=== PATIENT | male | born 1970 | race Caucasian/White ===

== ENCOUNTER 2024-08-28 14:15 | Observation (INO) ==
[2024-08-28] MEDS: NS 1,000 ML IV 1,000 ML IV ONE ×4 (15:02→21:24)
[2024-08-28] MEDS: ZOFRAN INJ 4 MG VIAL IVP ONE (15:03)
[2024-08-28 15:12] LABS: BASOPHILS # (AUTO) 0.1 X10^3/uL (0.0-0.1); BASOPHILS % (AUTO) 0.5 % (0.2-1.0); EOSINOPHILS # (AUTO) 0.5 x10^3/uL (0.0-0.2); HEMATOCRIT 46.4 % (42.0-54.0); HEMOGLOBIN 15.5 g/dL (13.5-18.0); LYMPHOCYTES # (AUTO) 2.5 X10^3/uL (1.3-2.9); LYMPHOCYTES % (AUTO) 15.1 % (21.0-51.0); MEAN CORPUSCULAR HEMOGLOBIN 27.9 pg (27.0-34.0); MEAN CORPUSCULAR HGB CONC 33.4 g/dL (33.0-35.0); MEAN CORPUSCULAR VOLUME 83.4 fL (80.0-100.0); MEAN PLATELET VOLUME 8.3 fL (7.4-11.0); MONOCYTES # (AUTO) 0.8 x10^3/uL (0.3-0.8); MONOCYTES % (AUTO) 4.6 % (0.0-13.0); NEUTROPHILS # (AUTO) 12.9 x10^3/uL (2.2-4.8); NEUTROPHILS % (AUTO) 76.8 % (42.0-75.0); PLATELET COUNT 343 X10^3/uL (150.0-450.0); RED BLOOD COUNT 5.57 X10^6/uL (4.7-6.0); RED CELL DISTRIBUTION WIDTH 14.8 % (11.6-16.5); WHITE BLOOD COUNT 16.8 X10^3/uL (3.6-10.0)
--- NOTE | 2024-08-28 15:24 | EKG ---
Test Reason : vomiting Blood Pressure : */* mmHG Vent. Rate : 63 BPM Atrial Rate : 63 BPM P-R Int : 192 ms QRS Dur : 108 ms QT Int : 426 ms P-R-T Axes : 46 -12 -8 degrees QTc Int : 435 ms Normal sinus rhythm Minimal voltage criteria for LVH, may be normal variant ( R in aVL ) Inferior infarct (cited on or before 14-APR-2022) Cannot rule out Anterior infarct (cited on or before 14-APR-2022) Abnormal ECG When compared with ECG of 14-APR-2022 17:33, Non-specific change in ST segment in Lateral leads T wave inversion now evident in Inferior leads Nonspecific T wave abnormality no longer evident in Lateral leads Confirmed by Viet King MD ([id number]) on 08/28/2024 4:22:06 PM Referred By: Confirmed By: Viet King MD
[2024-08-28 15:25] LABS: ALANINE AMINOTRANSFERASE 25 Units/L (12-78); ALBUMIN 3.7 g/dL (3.4-5.0); ALKALINE PHOSPHATASE 143 Units/L (46-116); ASPARTATE AMINO TRANSFERASE < 6 Units/L (15-37); BLOOD UREA NITROGEN 57 mg/dL (7-18); CALCIUM 8.6 mg/dL (8.5-10.1); CARBON DIOXIDE 18.3 mmol/L (21-32); CHLORIDE 100 mmol/L (98-107); COR NA(FOR HYPERGLY) 135 mmol/L (136-145); CREATINE KINASE 129 Units/L (39-308); CREATININE 4.64 mg/dL (0.70-1.30); GLUCOSE 151 mg/dL (65-99); POTASSIUM 4.1 mmol/L (3.5-5.1); SODIUM 134 mmol/L (136-145); TOTAL PROTEIN 7.9 g/dL (6.4-8.2); eGFR NON BLACK RACES 14 (>60)
--- NOTE | 2024-08-28 15:40 | RAD ---
EXAM: CHEST, 1 VIEW HISTORY: Shortness of Breath; COMPARISON: None. TECHNIQUE: Chest x-ray single view FINDINGS: Heart size and mediastinal contours are normal. Lungs are hypoinflated but otherwise clear as are the pleural spaces. No free air or pneumothorax. No acute bony abnormality. IMPRESSION: No acute radiographic abnormalities of the chest THIS IS AN ELECTRONICALLY VERIFIED FINAL REPORT 08/28/2024 3:36 PM - Electronically signed by Colin Guerrero MD
--- NOTE | 2024-08-28 17:03 | CT ---
EXAM:CT ABDOMEN AND PELVIS WITHOUT CONTRASTHISTORY:abd pain, diarrhea, AMARIS;COMPARISON:None.TECHNIQUE:Axial CT images were obtained through the abdomen and pelvis without contrast. Coronal reformatted images were included.All CT scans at this facility use dose modulation, iterative reconstruction, and/or weight based dosing when appropriate to reduce radiation dose to as low as reasonably achievable.FINDINGS:Please note that without the use of intravenous contrast, evaluation of organ parenchyma is limited.LOWER THORAX: NormalABDOMEN:LIVER: NormalGALLBLADDER: Gallbladder wall thickening is noted, a nonspecific finding.SPLEEN: Calcified granulomatous disease.PANCREAS: NormalKIDNEYS: NormalADRENAL GLANDS: Right adrenal myelolipoma noted, measuring 18 mm in size.GI TRACT: Air-fluid levels noted within the colon, suggesting diarrhea. No definite evidence of colitis however. Normal appendix.LYMPH NODES: No enlarged nodesVESSELS: Mild atherosclerosis.PERITONEUM / RETROPERITONEUM: Fat containing right inguinal hernia.PELVIS:BLADDER: NormalGENITALS: NormalBONES: Degenerative changes noted within the lumbar spine and pelvis.IMPRESSION:Air-fluid levels noted within the colon suggests likely diarrhea. No definite evidence of colitis however.Gallbladder wall thickening. Correlation recommended.Fat containing right inguinal hernia.THIS IS AN ELECTRONICALLY VERIFIED FINAL REPORT08/28/2024 5:00 PM - Electronically signed by Dejuan Garsia MD
[2024-08-28 17:14] LABS: BILIRUBIN,URINE NEGATIVE (NEGATIVE); BLOOD/HEMOGLOBIN,URINE NEGATIVE (NEGATIVE); GLUCOSE, URINE 3+ (NEGATIVE); KETONES,URINE NEGATIVE (NEGATIVE); LEUKOCYTE ESTERASE ,URINE NEGATIVE (NEGATIVE); NITRITES,URINE NEGATIVE (NEGATIVE); PROTEIN,URINE 2+ (NEGATIVE); UROBILINOGEN,URINE NORMAL (NORMAL)
[2024-08-28 17:23] LABS: APPEARANCE,URINE CLEAR (CLEAR); COLOR,URINE YELLOW (YELLOW)
[2024-08-28 17:24] LABS: RBC,URINE 0-2 /HPF (0-3)
[2024-08-28 17:25] LABS: BACTERIA,URINE NEGATIVE /HPF (NEGATIVE); SQUAMOUS EPITHELIAL CELL,UR NEGATIVE /HPF (NEGATIVE)
--- NOTE | 2024-08-28 17:54 | DR.DIZZY ---
HPI Time seen Time Seen by Provider: 08/28/24 14:47 PCP Primary Care Physician: Dr. Jolly Complaint Chief Complaint Doctor Comments: 54 yo M, hx of HTN, hyperlipidemia, CAD, c/o n/v/d for past 7d, 5-6 episodes of diarrhea in the past 24h. States he increased his dose of mounjaro 9d ago, began having severe diarrhea 7d ago, and every day since. c/o assoc weakness and lightheadedness. Denies abd pain. Denies fever. Denies other complaints. Chief Complaint:: Pt c/o 1 week of nausea, vomiting and diarrhea. Pt states that this is chronic and he thinks it is related to a gluten intolerance. Pt states that this has been happening for several years but usually only lasts around 2-3 days. Pt does admit to decreased po intake for the past week. 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 Pt denies any chest pain, shortness of breath or any other complaints. Self Treatment fo Chief Complaint: Pt just increased his Monjauro to 15mg with last dose was last Sunday. Pt has been taking his Lisinopril 5mg po BID with last dose this morning. Pt also takes Flexeril 5mg po hs for his chronic back pain. COVID-19 Coronavirus risk:travel/contact w/high risk person: No Has patient experienced Coronavirus symptoms: No Source History Provided: Patient Mode of Arrival Mode of Arrival: EMS Timing Onset of Chief Complaint: 08/21/24 Context Stroke Symptoms: None PMH PMH Past Medical History: Yes Past Medical History: Coronary Artery Disease, Diabetes, Dyslipidemia and [place] Past Medical History Comment: spinal stenosis L4-L5 Past Surgical History: Yes Surgical History: Angioplasty/Stents and Tonsillectomy Family History History of Family Medical Conditions: Yes Family Medical History: Diabetes Mellitus, Coronary Artery Disease and Hypertension Family Medical History Comment: ESRD, Liver Failure Social History Does patient currently use any type of tobacco product: No Have you used tobacco products in the last 12 months: No Type of Tobacco Use: None Does any household member use tobacco: No Alcohol Use: None Do you use any recreational Drugs:: No Lives With: Spouse Lives Where: Home Travel Risk Coronavirus risk:travel/contact w/high risk person: No Has patient experienced Coronavirus symptoms: No Infectious screening In the last 2 months have you had wt loss of >10#?: NO Have you had fever, night sweats or hemotysis?: No Have you traveled outside the country in the last 6 months?: No Isolation: Standard ROS Review of Systems Constitutional: negative Fever Gastrointestinal/Abdominal: Diarrhea, Nausea and Vomiting; negative Abdominal Pain All Other Systems: Reviewed and Negative PE Vital Signs Vitals: Vital Signs Temperature 97.9 F Pulse Rate 67 Pulse Rate 68 Pulse Rate 67 Pulse Rate 67 Pulse Rate 71 Pulse Rate 65 Pulse Rate 65 Pulse Rate 72 Pulse Rate 64 Pulse Rate 63 Pulse Rate 64 Pulse Rate 64 Pulse Rate 72 Pulse Rate 66 Pulse Rate 69 Pulse Rate 74 Respiratory Rate 9 Respiratory Rate 19 Respiratory Rate 24 Respiratory Rate 18 Respiratory Rate 18 Respiratory Rate 14 Respiratory Rate 20 Blood Pressure 85/53 Blood Pressure 112/65 Blood Pressure 101/60 Blood Pressure 92/52 Blood Pressure 88/49 Blood Pressure 78/51 Blood Pressure 82/53 Blood Pressure 85/51 Blood Pressure 83/51 Blood Pressure 71/48 Blood Pressure 77/52 O2 Sat by Pulse Oximetry 98 O2 Sat by Pulse Oximetry 95 O2 Sat by Pulse Oximetry 100 O2 Sat by Pulse Oximetry 97 O2 Sat by Pulse Oximetry 98 O2 Sat by Pulse Oximetry 96 O2 Sat by Pulse Oximetry 95 O2 Sat by Pulse Oximetry 98 O2 Sat by Pulse Oximetry 94 O2 Sat by Pulse Oximetry 96 O2 Sat by Pulse Oximetry 96 O2 Sat by Pulse Oximetry 94 O2 Sat by Pulse Oximetry 96 O2 Sat by Pulse Oximetry 96 O2 Sat by Pulse Oximetry 96 O2 Sat by Pulse Oximetry 96 General Limitations: No Limitations General Appearance: Alert, In No Apparent Distress and Other (appears dehydrated, dry mucous membranes) Head Head Exam: Normal Inspection Eyes Eye exam: Normal Appearance ENT ENT Exam: Normal Exam, Normal Oropharynx and Normal External Ear Exam Neck Neck Exam: Normal Inspection and Full ROM Chest Chest Inspection: Normal Inspection Respiratory Respiratory Exam: Normal Lung Sounds Bilat Cardiovascular Cardiovascular Exam: Regular Rate and Normal Rhythm Abdominal Exam Abdominal Exam: Normal Inspection, Normal Bowel Sounds and Soft Rectal Rectal Exam: Deferred Extremeties Extremities Exam: Normal Inspection and Full ROM Back Back Exam: Normal Inspection and Full ROM Neurologic Neurological Exam: Alert and Oriented X3 Psychiatric Psychiatric Exam: Normal Affect and Normal Mood Skin Skin Exam: Warm, Dry, Intact and Normal Color ROR Labs Reviewed Laboratory Results Reviewed?: Yes 08/28/24 15:02 08/28/24 15:02 Laboratory: WBC 16.8 X10^3/uL (3.6-10.0) H 08/28/24 15:02 RBC 5.57 X10^6/uL (4.7-6.0) 08/28/24 15:02 Hgb 15.5 g/dL (13.5-18.0) 08/28/24 15:02 Hct 46.4 % (42.0-54.0) 08/28/24 15:02 MCV 83.4 fL (80.0-100.0) 08/28/24 15:02 MCH 27.9 pg (27.0-34.0) 08/28/24 15:02 MCHC 33.4 g/dL (33.0-35.0) 08/28/24 15:02 RDW 14.8 % (11.6-16.5) 08/28/24 15:02 Plt Count 343 X10^3/uL (150.0-450.0) 08/28/24 15:02 MPV 8.3 fL (7.4-11.0) 08/28/24 15:02 Neut % (Auto) 76.8 % (42.0-75.0) H 08/28/24 15:02 Lymph % (Auto) 15.1 % (21.0-51.0) L 08/28/24 15:02 [place] % (Auto) 4.6 % (0.0-13.0) 08/28/24 15:02 Eos % (Auto) 3.0 % (0.9-2.9) H 08/28/24 15:02 Baso % (Auto) 0.5 % (0.2-1.0) 08/28/24 15:02 Neut # (Auto) 12.9 x10^3/uL (2.2-4.8) H 08/28/24 15:02 Lymph # (Auto) 2.5 X10^3/uL (1.3-2.9) 08/28/24 15:02 [place] # (Auto) 0.8 x10^3/uL (0.3-0.8) 08/28/24 15:02 Eos # (Auto) 0.5 x10^3/uL (0.0-0.2) H 08/28/24 15:02 Baso # (Auto) 0.1 X10^3/uL (0.0-0.1) 08/28/24 15:02 Absolute Nucleated RBC 0.1 /100WBC 08/28/24 15:02 Sodium 134 mmol/L (136-145) L 08/28/24 15:02 Corrected Sodium 135 mmol/L (136-145) L 08/28/24 15:02 Potassium 4.1 mmol/L (3.5-5.1) 08/28/24 15:02 Chloride 100 mmol/L (98-107) 08/28/24 15:02 Carbon Dioxide 18.3 mmol/L (21-32) L 08/28/24 15:02 BUN 57 mg/dL (7-18) H 08/28/24 15:02 Creatinine 4.64 mg/dL (0.70-1.30) H 08/28/24 15:02 Est GFR (MDRD) Af Amer 17 (>60) L 08/28/24 15:02 Est GFR (MDRD) Non-Af 14 (>60) L 08/28/24 15:02 Glucose 151 mg/dL (65-99) H 08/28/24 15:02 Calcium 8.6 mg/dL (8.5-10.1) 08/28/24 15:02 Corrected Calcium TNP 08/28/24 15:02 Total Bilirubin 0.30 mg/dL (0.2-1.0) 08/28/24 15:02 AST < 6 Units/L (15-37) L 08/28/24 15:02 ALT 25 Units/L (12-78) 08/28/24 15:02 Alkaline Phosphatase 143 Units/L (46-116) H 08/28/24 15:02 Creatine Kinase 129 Units/L (39-308) 08/28/24 15:02 Troponin I High Sens 5.2 ng/L (4.0-60.0) 08/28/24 15:02 B-Natriuretic Peptide < 5.0 pg/mL (0-79) 08/28/24 15:02 Total Protein 7.9 g/dL (6.4-8.2) 08/28/24 15:02 Albumin 3.7 g/dL (3.4-5.0) 08/28/24 15:02 Globulin 4.2 g/dL (2.5-4.5) 08/28/24 15:02 Albumin/Globulin Ratio 0.9 Ratio (1.1-2.1) L 08/28/24 15:02 Specimen Type Clean catch urine 08/28/24 16:58 Urine Color Yellow (YELLOW) 08/28/24 16:58 Urine Appearance Clear (CLEAR) 08/28/24 16:58 Urine pH 5.0 (5.0 - 8.0) 08/28/24 16:58 Ur Specific [place] 1.015 (1.000-1.030) 08/28/24 16:58 Urine Protein 2+ (NEGATIVE) 08/28/24 16:58 Urine Glucose (UA) 3+ (NEGATIVE) 08/28/24 16:58 Urine Ketones Negative (NEGATIVE) 08/28/24 16:58 Urine Blood Negative (NEGATIVE) 08/28/24 16:58 Urine Nitrite Negative (NEGATIVE) 08/28/24 16:58 Urine Bilirubin Negative (NEGATIVE) 08/28/24 16:58 Urine Urobilinogen Normal (NORMAL) 08/28/24 16:58 Ur Leukocyte Esterase Negative (NEGATIVE) 08/28/24 16:58 Urine RBC 0-2 /HPF (0-3) 08/28/24 16:58 Urine WBC 0-2 /HPF (0-5) 08/28/24 16:58 Ur Squamous Epith Cells Negative /HPF (NEGATIVE) 08/28/24 16:58 Urine Bacteria Negative /HPF (NEGATIVE) 08/28/24 16:58 Ur Culture Indicated? No/not indicated 08/28/24 16:58 Opioid Opioid Risk Tool Age (Nas box if 16-45): No History of Preadolescent Sexual Abuse: No Total: 0 Total Score Risk Category: Low Risk Copyright: [place] RING predicting aberrant behaviors Discharge Plan Diagnosis Discharge Problem: AMARIS (acute kidney injury), Acute dehydration, Diarrhea, Acute hypotension Discharge Plan Patient Disposition: ADMITTED INPATIENT Condition: Stable Orders to Discharge Patient Discharge Orders: Transfer (Routine); Ordered 08/28/24 Ordered By: Jose Thomas ADDITIONAL NOTES Additional Notes Additional Notes: admitted to Dr Jolly
[2024-08-28] MEDS ORDERED: ZOFRAN TAB 4 MG PO PRN (18:08)
[2024-08-28 20:01] VITALS: BMI 32.8
[2024-08-28] MEDS: LYRICA CAP 50 mg PO SCH (21:24)
[2024-08-28] MEDS: FLEXERIL TAB 10 MG PO SCH (21:24)
[2024-08-28] MEDS: LIPITOR TAB 80 MG PO SCH (21:24)
[2024-08-28] MEDS ORDERED: NS 1,000 ML IV 1,000 ML IV SCH (22:00)
[2024-08-29] MEDS: NS 1,000 ML IV 1,000 ML IV SCH (03:03)
[2024-08-29 05:42] LABS: BASOPHILS # (AUTO) 0.1 X10^3/uL (0.0-0.1); BASOPHILS % (AUTO) 0.5 % (0.2-1.0); EOSINOPHILS # (AUTO) 0.7 x10^3/uL (0.0-0.2); EOSINOPHILS % (AUTO) 4.9 % (0.9-2.9); HEMATOCRIT 45.5 % (42.0-54.0); HEMOGLOBIN 14.9 g/dL (13.5-18.0); LYMPHOCYTES # (AUTO) 3.2 X10^3/uL (1.3-2.9); LYMPHOCYTES % (AUTO) 21.4 % (21.0-51.0); MEAN CORPUSCULAR HEMOGLOBIN 27.3 pg (27.0-34.0); MEAN CORPUSCULAR HGB CONC 32.7 g/dL (33.0-35.0); MEAN CORPUSCULAR VOLUME 83.4 fL (80.0-100.0); MEAN PLATELET VOLUME 8.7 fL (7.4-11.0); MONOCYTES # (AUTO) 1.2 x10^3/uL (0.3-0.8); MONOCYTES % (AUTO) 8.2 % (0.0-13.0); NEUTROPHILS # (AUTO) 9.6 x10^3/uL (2.2-4.8); PLATELET COUNT 254 X10^3/uL (150.0-450.0); RED BLOOD COUNT 5.46 X10^6/uL (4.7-6.0); RED CELL DISTRIBUTION WIDTH 14.6 % (11.6-16.5); WHITE BLOOD COUNT 14.8 X10^3/uL (3.6-10.0)
[2024-08-29 06:01] LABS: ALANINE AMINOTRANSFERASE 20 Units/L (12-78); ALBUMIN 3.1 g/dL (3.4-5.0); ALKALINE PHOSPHATASE 129 Units/L (46-116); ASPARTATE AMINO TRANSFERASE < 6 Units/L (15-37); BLOOD UREA NITROGEN 46 mg/dL (7-18); CALCIUM 8.3 mg/dL (8.5-10.1); CARBON DIOXIDE 22.4 mmol/L (21-32); CHLORIDE 107 mmol/L (98-107); GLUCOSE 94 mg/dL (65-99); MAGNESIUM 2.1 mg/dL (2.0-2.9); POTASSIUM 4.2 mmol/L (3.5-5.1); SODIUM 142 mmol/L (136-145); TOTAL PROTEIN 6.9 g/dL (6.4-8.2); eGFR NON BLACK RACES 32 (>60)
[2024-08-29] MEDS: CELEXA PO SCH (08:43)
[2024-08-29] MEDS: GLUCOPHAGE XR 24-HR PO SCH (08:43)
[2024-08-29] MEDS: IMODIUM CAP 2 MG PO PRN (08:43)
[2024-08-29] MEDS: PriLOSEC PO SCH (08:43)
[2024-08-29] MEDS: FARXIGA PO SCH (08:43)
[2024-08-29] MEDS ORDERED: PATIENT'S HOME MEDICATION (Omeprazole 40 mg capsule,delayed release(DR/EC)) PO SCH (09:00)
[2024-08-29] MEDS: PATIENT'S HOME MEDICATION (Prasugrel Hcl 10 mg tablet) PO SCH (09:48)
--- NOTE | 2024-08-29 12:26 | DR.H&P ---
H&P History & Physical for Day of: H&P Date: 08/29/24 Chief Complaint Chief Complaint: weakness History of Present Illness History of Present Illness: Patient with an upset stomach, nausea, and diarrhea for most of this week. Has been trying to stay extra hydrated and adjust his medications. Sugars and blood pressure have been doing fairly well when he checked. 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 They sent him to the nurses station where he was found to be hypotensive. Sent to the ER where he was found to have an AMARIS, hypotension, and leukocytosis. He responded well to hydration and was admitted overnight for further monitoring. He is continued with diarrhea every 1-1.5 hours. Sour stomach seems to have improved with no nausea or vomiting. He has been tolerating a diet. Creatinine did improve overnight. He does not feel stable to go home due to the continued diarrhea. Imodium has been started. ROS: 12 point ROS otherwise negative. PE: Well-developed, well-nourished male in no acute distress. He was wearing his CPAP and easily took it off and easily awakened. Head NCAT, EOMI, hearing intact to conversation, trachea midline. Heart regular rate and rhythm with clear lungs. Belly is soft and nontender with hyperactive bowel sounds. Marie sign negative. No swelling of his extremities with appropriate mood and affect. Able to move all extremities equally. Past Medical History Past Medical History: Diabetes and Hypertension Past Surgical History Surgical History: Angioplasty/Stents and Tonsillectomy Family History Family Medical History: Diabetes Mellitus Social History Does patient currently use any type of tobacco product: No Have you used tobacco products in the last 12 months: No Type of Tobacco Use: None Does any household member use tobacco: No Alcohol Use: None Drug Use: None Medications Home Medications: Home Medications Medication Instructions Recorded Confirmed Type atorvastatin 80 mg tablet 80 mg PO QPM PRN 11/05/23 08/28/24 History prasugrel HCl 10 mg tablet 10 mg PO QDAY 11/05/23 08/28/24 History blood-glucose sensor (Dexcom G7 #1 ea 03/24/24 08/28/24 History Sensor device) dapagliflozin propaned 10 1 tab PO QDAY 08/28/24 08/28/24 History mg-metformin ER 1,000 mg tablet,ext rel 24hr (Xigduo XR) evolocumab 140 mg/mL subcutaneous 140 mg subcut Q2W 08/28/24 08/28/24 History pen injector (Repatha SureClick) insulin degludec 200 unit/mL (3 50 unit subcut QDAY 08/28/24 08/28/24 History mL) subcutaneous pen (Tresiba FlexTouch U-200 insulin) ondansetron HCl 4 mg tablet 4 mg PO Q8H PRN 08/28/24 08/28/24 History Allergies Allergies Allergy/AdvReac Type Severity Reaction Status Date / Time No Known Drug Allergies Allergy Verified 05/13/20 17:12 Labs 08/29/24 04:33 08/29/24 04:33 Labs: 08/29/24 04:46 Stool - Final Laboratory WBC 14.8 X10^3/uL (3.6-10.0) H 08/29/24 04:33 RBC 5.46 X10^6/uL (4.7-6.0) 08/29/24 04:33 Hgb 14.9 g/dL (13.5-18.0) 08/29/24 04:33 Hct 45.5 % (42.0-54.0) 08/29/24 04:33 MCV 83.4 fL (80.0-100.0) 08/29/24 04:33 MCH 27.3 pg (27.0-34.0) 08/29/24 04:33 MCHC 32.7 g/dL (33.0-35.0) L 08/29/24 04:33 RDW 14.6 % (11.6-16.5) 08/29/24 04:33 Plt Count 254 X10^3/uL (150.0-450.0) 08/29/24 04:33 MPV 8.7 fL (7.4-11.0) 08/29/24 04:33 Neut % (Auto) 65.0 % (42.0-75.0) 08/29/24 04:33 Lymph % (Auto) 21.4 % (21.0-51.0) 08/29/24 04:33 [place] % (Auto) 8.2 % (0.0-13.0) 08/29/24 04:33 Eos % (Auto) 4.9 % (0.9-2.9) H 08/29/24 04:33 Baso % (Auto) 0.5 % (0.2-1.0) 08/29/24 04:33 Neut # (Auto) 9.6 x10^3/uL (2.2-4.8) H 08/29/24 04:33 Lymph # (Auto) 3.2 X10^3/uL (1.3-2.9) H 08/29/24 04:33 [place] # (Auto) 1.2 x10^3/uL (0.3-0.8) H 08/29/24 04:33 Eos # (Auto) 0.7 x10^3/uL (0.0-0.2) H 08/29/24 04:33 Baso # (Auto) 0.1 X10^3/uL (0.0-0.1) 08/29/24 04:33 Absolute Nucleated RBC 0.1 /100WBC 08/29/24 04:33 Sodium 142 mmol/L (136-145) 08/29/24 04:33 Corrected Sodium TNP 08/29/24 04:33 Potassium 4.2 mmol/L (3.5-5.1) 08/29/24 04:33 Chloride 107 mmol/L (98-107) 08/29/24 04:33 Carbon Dioxide 22.4 mmol/L (21-32) 08/29/24 04:33 BUN 46 mg/dL (7-18) H 08/29/24 04:33 Creatinine 2.30 mg/dL (0.70-1.30) H 08/29/24 04:33 Est GFR (MDRD) Af Amer 38 (>60) L 08/29/24 04:33 Est GFR (MDRD) Non-Af 32 (>60) L 08/29/24 04:33 Glucose 94 mg/dL (65-99) 08/29/24 04:33 POC Glucose (mg/dL) 156 mg/dL (65-99) H 08/29/24 11:29 Calcium 8.3 mg/dL (8.5-10.1) L 08/29/24 04:33 Corrected Calcium 9.0 mg/dL (8.5-10.1) 08/29/24 04:33 Magnesium 2.1 mg/dL (2.0-2.9) 08/29/24 04:33 Total Bilirubin 0.30 mg/dL (0.2-1.0) 08/29/24 04:33 AST < 6 Units/L (15-37) L 08/29/24 04:33 ALT 20 Units/L (12-78) 08/29/24 04:33 Alkaline Phosphatase 129 Units/L (46-116) H 08/29/24 04:33 Creatine Kinase 129 Units/L (39-308) 08/28/24 15:02 Troponin I High Sens 5.2 ng/L (4.0-60.0) 08/28/24 15:02 B-Natriuretic Peptide < 5.0 pg/mL (0-79) 08/28/24 15:02 Total Protein 6.9 g/dL (6.4-8.2) 08/29/24 04:33 Albumin 3.1 g/dL (3.4-5.0) L 08/29/24 04:33 Globulin 3.8 g/dL (2.5-4.5) 08/29/24 04:33 Albumin/Globulin Ratio 0.8 Ratio (1.1-2.1) L 08/29/24 04:33 Specimen Type Clean catch urine 08/28/24 16:58 Urine Color Yellow (YELLOW) 08/28/24 16:58 Urine Appearance Clear (CLEAR) 08/28/24 16:58 Urine pH 5.0 (5.0 - 8.0) 08/28/24 16:58 Ur Specific [place] 1.015 (1.000-1.030) 08/28/24 16:58 Urine Protein 2+ (NEGATIVE) 08/28/24 16:58 Urine Glucose (UA) 3+ (NEGATIVE) 08/28/24 16:58 Urine Ketones Negative (NEGATIVE) 08/28/24 16:58 Urine Blood Negative (NEGATIVE) 08/28/24 16:58 Urine Nitrite Negative (NEGATIVE) 08/28/24 16:58 Urine Bilirubin Negative (NEGATIVE) 08/28/24 16:58 Urine Urobilinogen Normal (NORMAL) 08/28/24 16:58 Ur Leukocyte Esterase Negative (NEGATIVE) 08/28/24 16:58 Urine RBC 0-2 /HPF (0-3) 08/28/24 16:58 Urine WBC 0-2 /HPF (0-5) 08/28/24 16:58 Ur Squamous Epith Cells Negative /HPF (NEGATIVE) 08/28/24 16:58 Urine Bacteria Negative /HPF (NEGATIVE) 08/28/24 16:58 Ur Culture Indicated? No/not indicated 08/28/24 16:58 Stl Occult Blood (IFOB) Positive (NEGATIVE) A 08/29/24 04:46 Stl C. diff Tox B Gene Negative (NEGATIVE) 08/29/24 04:46 Stl C. diff [id number] Presumptive negative (NEGATIVE) 08/29/24 04:46 Stool H. pylori Ag Negative (NEGATIVE) 08/29/24 04:46 Physical Exam Vital Signs: Vital Signs Temperature 97.5 F Temperature 98.0 F Pulse Rate 77 Pulse Rate 83 Pulse Rate 81 Pulse Rate 79 Pulse Rate 82 Pulse Rate 78 Pulse Rate 77 Pulse Rate 85 Pulse Rate 81 Pulse Rate 81 Pulse Rate 77 Pulse Rate 77 Pulse Rate 78 Pulse Rate 74 Pulse Rate 87 Pulse Rate 75 Pulse Rate 68 Pulse Rate 67 Pulse Rate 65 Pulse Rate 66 Pulse Rate 64 Pulse Rate 68 Pulse Rate 76 Pulse Rate 77 Pulse Rate 77 Respiratory Rate 16 Respiratory Rate 15 Respiratory Rate 17 Respiratory Rate 17 Respiratory Rate 19 Respiratory Rate 21 Respiratory Rate 17 Respiratory Rate 19 Respiratory Rate 20 Respiratory Rate 23 Respiratory Rate 23 Respiratory Rate 17 Respiratory Rate 17 Respiratory Rate 16 Respiratory Rate 16 Respiratory Rate 22 Respiratory Rate 14 Respiratory Rate 15 Respiratory Rate 15 Respiratory Rate 16 Respiratory Rate 17 Respiratory Rate 16 Respiratory Rate 15 Respiratory Rate 13 Respiratory Rate 15 Respiratory Rate 16 Blood Pressure 108/64 Blood Pressure 103/59 Blood Pressure 105/52 Blood Pressure 105/52 Blood Pressure 120/59 Blood Pressure 120/59 Blood Pressure 127/66 Blood Pressure 127/66 O2 Sat by Pulse Oximetry 97 O2 Sat by Pulse Oximetry 96 O2 Sat by Pulse Oximetry 96 O2 Sat by Pulse Oximetry 98 O2 Sat by Pulse Oximetry 96 O2 Sat by Pulse Oximetry 97 O2 Sat by Pulse Oximetry 96 O2 Sat by Pulse Oximetry 97 O2 Sat by Pulse Oximetry 97 O2 Sat by Pulse Oximetry 97 O2 Sat by Pulse Oximetry 99 O2 Sat by Pulse Oximetry 99 O2 Sat by Pulse Oximetry 97 O2 Sat by Pulse Oximetry 97 O2 Sat by Pulse Oximetry 97 O2 Sat by Pulse Oximetry 100 O2 Sat by Pulse Oximetry 98 O2 Sat by Pulse Oximetry 98 O2 Sat by Pulse Oximetry 97 O2 Sat by Pulse Oximetry 98 O2 Sat by Pulse Oximetry 97 O2 Sat by Pulse Oximetry 96 O2 Sat by Pulse Oximetry 98 O2 Sat by Pulse Oximetry 98 O2 Sat by Pulse Oximetry 98 O2 Sat by Pulse Oximetry 100 O2 Sat by Pulse Oximetry 98 O2 Sat by Pulse Oximetry 99 O2 Sat by Pulse Oximetry 99 Assessment/Plan (1) AMARIS (acute kidney injury): Narrative Support Text: Continue IV fluids. Serum creatinine responding appropriately. Start p.o. Imodium to try to slow down diarrhea. Status: Acute (2) Acute dehydration: Narrative Support Text: See above. Status: Acute (3) Diarrhea: Qualifiers: Diarrhea type: presumed infectious Qualified Code(s): R19.7 - Diarrhea, unspecified Narrative Support Text: See above. If truly infectious, he would meet severe sepsis with leukocytosis, tachycardia, GI source, hypotension, and AMARIS that is responsive to fluids. Does have gallbladder wall thickening. Will likely need a HIDA as an outpatient. May need to start cipro/flagyl if no improvement overnight and based on stool culture. Status: Acute (4) Acute hypotension: Narrative Support Text: See above. Status: Acute (5) DEVAUGHN on CPAP: Narrative Support Text: Continue CPAP Status: Chronic (6) Type 2 diabetes mellitus with diabetic polyneuropathy: Qualifiers: Diabetes mellitus skilled nursing insulin use: with skilled nursing use Qualified Code(s): E11.42 - Type 2 diabetes mellitus with diabetic polyneuropathy; Z79.4 - skilled nursing (current) use of insulin Narrative Support Text: Hold Xigduo for now. Sliding scale to cover sugar. Status: Chronic (7) Lumbar stenosis without neurogenic claudication: Narrative Support Text: Monitor for changes Status: Chronic (8) Coronary artery disease without angina pectoris: Qualifiers: Coronary Disease-Associated Artery/Lesion type: [place] artery [place] vs. transplanted heart: [place] heart Qualified Code(s): I25.10 - Atherosclerotic heart disease of [place] coronary artery without angina pectoris Narrative Support Text: Resume appropriate home meds. Status: Chronic (9) Essential (primary) hypertension: Narrative Support Text: hold BP meds for now. Status: Chronic (10) Mixed hyperlipidemia: Narrative Support Text: continue statin Status: Chronic
[2024-08-29] MEDS ORDERED: ZOFRAN INJ 4 MG VIAL ONE (14:56)
[2024-08-29] MEDS ORDERED: ZOFRAN INJ 4 MG VIAL IVP PRN (15:15)
[2024-08-29] MEDS: ZOFRAN INJ 4 MG VIAL IVP ONE (15:15)
[2024-08-29] MEDS: REGLAN INJ 10 MG VIAL IVP SCH (21:07)
[2024-08-30 05:41] LABS: BASOPHILS # (AUTO) 0.1 X10^3/uL (0.0-0.1); BASOPHILS % (AUTO) 0.5 % (0.2-1.0); EOSINOPHILS # (AUTO) 0.8 x10^3/uL (0.0-0.2); EOSINOPHILS % (AUTO) 6.6 % (0.9-2.9); HEMATOCRIT 44.2 % (42.0-54.0); HEMOGLOBIN 14.7 g/dL (13.5-18.0); LYMPHOCYTES % (AUTO) 24.3 % (21.0-51.0); MEAN CORPUSCULAR HEMOGLOBIN 27.6 pg (27.0-34.0); MEAN CORPUSCULAR HGB CONC 33.3 g/dL (33.0-35.0); MEAN CORPUSCULAR VOLUME 82.8 fL (80.0-100.0); MEAN PLATELET VOLUME 8.9 fL (7.4-11.0); MONOCYTES # (AUTO) 0.8 x10^3/uL (0.3-0.8); MONOCYTES % (AUTO) 6.1 % (0.0-13.0); NEUTROPHILS # (AUTO) 7.7 x10^3/uL (2.2-4.8); NEUTROPHILS % (AUTO) 62.5 % (42.0-75.0); PLATELET COUNT 224 X10^3/uL (150.0-450.0); RED BLOOD COUNT 5.35 X10^6/uL (4.7-6.0); RED CELL DISTRIBUTION WIDTH 14.9 % (11.6-16.5); WHITE BLOOD COUNT 12.4 X10^3/uL (3.6-10.0)
[2024-08-30 05:57] LABS: ALANINE AMINOTRANSFERASE 20 Units/L (12-78); ALBUMIN 2.9 g/dL (3.4-5.0); ALKALINE PHOSPHATASE 127 Units/L (46-116); ASPARTATE AMINO TRANSFERASE < 6 Units/L (15-37); BLOOD UREA NITROGEN 26 mg/dL (7-18); CALCIUM 8.1 mg/dL (8.5-10.1); CARBON DIOXIDE 19.3 mmol/L (21-32); CHLORIDE 108 mmol/L (98-107); CREATININE 1.24 mg/dL (0.70-1.30); GLUCOSE 103 mg/dL (65-99); POTASSIUM 3.6 mmol/L (3.5-5.1); SODIUM 140 mmol/L (136-145); TOTAL PROTEIN 6.6 g/dL (6.4-8.2); eGFR NON BLACK RACES > 60 (>60)
[2024-08-30] MEDS ORDERED: CONSULT PHARMACY - POTASSIUM & MAGNESIUM XX SCH ×2 (07:00→08:00)
[2024-08-30 08:18] VITALS: BP 133/81; PULSE 87; RESP 13; TEMP 98; O2SAT 98
[2024-08-30] MEDS: MAG-OX TAB PO SCH (08:52)
[2024-08-30] MEDS: K-DUR TAB 20 MEQ PO SCH (08:52)
== END 2024-08-30 10:30 | disposition home or self-care (01) ==
LOC: ER 14:15 → INTOOBSV 17:52 → ICU 17:52
PROVIDERS: ADMIT Family Medicine; ATTEND Family Medicine
DX: K92.1 Melena; E11.42 Type 2 diabetes mellitus with diabetic polyneuropathy; R53.1 Weakness; G47.33 Obstructive sleep apnea (adult) (pediatric); N17.8 Other acute kidney failure; E11.65 Type 2 diabetes mellitus with hyperglycemia; R10.84 Generalized abdominal pain; M48.061 Spinal stenosis, lumbar region without neurogenic claudication; K40.90 Unilateral inguinal hernia, without obstruction or gangrene, not specified as recurrent; R19.7 Diarrhea, unspecified; E86.0 Dehydration; R42 Dizziness and giddiness; E78.2 Mixed hyperlipidemia; I10 Essential (primary) hypertension; R06.02 Shortness of breath; I25.10 Atherosclerotic heart disease of native coronary artery without angina pectoris; Z79.4 Long term (current) use of insulin; I95.89 Other hypotension; E87.1 Hypo-osmolality and hyponatremia; R94.31 Abnormal electrocardiogram [ECG] [EKG]